=== PATIENT | male | born 1980 | race Caucasian/White ===

== ENCOUNTER 2020-05-06 11:55 | Emergency (ER) | payer OTHER ==
--- NOTE | 2020-05-06 13:52 | REP ---
Clinical: Trauma. Fall. Technique: AP, lateral, bilateral oblique views of the left elbow. Findings: No acute fracture dislocation. Skeletal structures, joint spaces, and surrounding soft tissues appear normal. No subcutaneous emphysema or foreign body. Impression: No obvious acute fracture or dislocation. Electronically Signed by Chico Garcia MD 05/06/2020 01:43 P
--- NOTE | 2020-05-06 13:55 | REP ---
Clinical: Trauma. Fall. Technique: Internal rotation, external rotation, Y view of the left shoulder. Findings: No definite acute fracture is appreciated. Subtle grade 1 acromioclavicular joint separation is suggested and few small corticated adjacent loose bodies are noted measuring between 4 and 15 mm. Findings may represent sequelae of old injury and should be correlated clinically. No prior examinations are available for comparison. The glenohumeral joint appears relatively intact and normal. The subacromial space is normal. Impression: Changes surrounding the acromioclavicular joint as noted above suggest sequelae of old injury. Subtle superimposed AC joint separation cannot definitively be excluded. Electronically Signed by Chico Garcia MD 05/06/2020 01:47 P
[2020-05-06 14:30] VITALS: BP 130/92
== END 2020-05-06 14:33 | disposition home or self-care (01) ==
LOC: M ED 11:55
DX: S43.402A Unspecified sprain of left shoulder joint, initial encounter (principal); S53.402A Unspecified sprain of left elbow, initial encounter; W19.XXXA Unspecified fall, initial encounter; Y92.89 Other specified places as the place of occurrence of the external cause; Y99.0 Civilian activity done for income or pay